=== PATIENT | male | born 1965 | race Asian ===

== ENCOUNTER 2016-07-07 18:40 | Emergency (ER) | payer OTHER ==
[2016-07-07 18:49] VITALS: BP 110/79; PULSE 90; RESP 16; TEMP 99.7; O2SAT 93
[2016-07-07] MEDS ORDERED: ONDANSETRON 4 MG/2 ML VIAL IVP ONE (19:32)
[2016-07-07] MEDS ORDERED: NS 1,000 ML IV ONE (19:45)
[2016-07-07] MEDS ORDERED: diphenhydrAMINE 25 MG CAP PO ONE (20:13)
[2016-07-07] MEDS ORDERED: ONDANSETRON 4MG PREPACK#2 BTL TAKEHOME ONE (20:14)
--- NOTE | 2016-07-07 20:18 | UCPHY ---
H & P Patient Type: Established Chief Complaint Nursing Narrative: n/d started today. denies vomiting Time Seen by Provider: 07/07/16 20:00 HPI/ROS: This patient reports diarrhea today-3 episodes of loose watery stool with some crampy intermittent abdominal pain associated with this that is generalized location. Symptoms started 7:00 a.m. this morning. He has associated nausea but is still tolerating p. o. intake and had yogurt and rice this evening with moderate cramping thereafter but no vomiting. No other associated symptoms. No other exacerbating or alleviating factors. ROS: No fevers or chills. No other constitutional symptoms. HEENT: No recent URI symptoms or headache. No other complaints. Pulmonary: No coughing. No shortness of breath. Cardiovascular: No heart palpitations or lightheadedness. GI: Currently no significant abdominal pain. : No symptoms. Integumentary: No skin rash. Point ROS is otherwise negative. Source: Patient Exam Limitations: No limitations - Personal History Tetanus Vaccine Date: 2011? - Medical/Surgical History Other PMH: denies - Family History Significant Family History: No pertinent family hx - Social History Smoking Status: Never smoked Alcohol Use: Occasionally Drug Use: None Additional Social History: No recent foreign travel or suspect food He has had sick contacts with people at work who have had recent gastrointestinal illnesses. - Physical Exam Exam: Normal vital signs General Appearance: Alert, no distress. Eyes: Pupils equal and round no pallor or injection. ENT, Mouth: Mucous membranes moist. Respiratory: There are no retractions, lungs are clear to auscultation. Cardiovascular: Regular rate and rhythm. Gastrointestinal: Hyperactive bowel sounds, soft, nontender Back: No CVA tenderness : No testicular tenderness Neurological: Alert with no focal deficits Skin: Warm and dry, no rashes. Musculoskeletal: Neck is supple nontender. Extremities are symmetrical, full range of motion. Psychiatric: Mood and affect normal DIFFERENTIAL DIAGNOSIS: After history and physical exam differential diagnosis was considered for viral gastroenteritis, dehydration, food intolerance Constitutional: Initial Vital Signs Temperature (C) 37.6 C 07/07/16 18:46 Heart Rate 90 07/07/16 18:46 Respiratory Rate 16 07/07/16 18:46 Blood Pressure 110/79 07/07/16 18:46 O2 Sat (%) 93 07/07/16 18:46 O2 Delivery Mode Room Air Allergies/Adverse Reactions: No Known Allergies Allergy (Verified 04/10/15 20:06) Home Medications: Medication Instructions Recorded Ondansetron Odt [Zofran Odt] 4 - 8 mg PO Q4PRN PRN #4 tab 07/07/16 Medical Decision Making ED Course/Re-evaluation: IV normal saline bolus Given his recent sick contact with coworkers with GI illnesses in his benign appearance currently feel this patient has a mild viral gastroenteritis I counseled regarding this. His nausea was treated with Zofran with relief. Enough ankle evidence suggest surgical abdomen, UTI or other concerning findings. - Data Points Medications Given: Discontinued Medications Diphenhydramine HCl (Benadryl) 50 mg PO EDNOW ONE Stop: 07/07/16 20:14 Last Admin: 07/07/16 20:31 Dose: 50 mg Sodium Chloride (Ns) 1,000 mls @ 0 mls/hr IV ONCE ONE PRN Reason: Wide Open Stop: 07/07/16 19:46 Last Admin: 07/07/16 19:46 Dose: 1,000 mls Ondansetron HCl (Zofran) 4 mg IVP EDNOW ONE Stop: 07/07/16 19:33 Last Admin: 07/07/16 19:46 Dose: 4 mg Ondansetron HCl (Zofran Odt 4 Mg Prepack#2) 1 btl TAKEHOME EDNOW ONE Stop: 07/07/16 20:15 Last Admin: 07/07/16 20:31 Dose: 1 btl Departure - Departure Disposition: Home, Routine, Self-Care Clinical Impression: Nausea Diarrhea Qualifiers: Diarrhea type: unspecified type Qualified Code(s): R19.7 - Diarrhea, unspecified Condition: Good Instructions: Acute Nausea and Vomiting (ED), Acute Diarrhea (ED) Additional Instructions: Diagnosis: Diarrhea 2. Nausea Plan: Zofran if needed for nausea Light diet to feel improved Benadryl at bedtime if needed for cramps that prevents sleep Imodium if needed for diarrhea. Your symptoms will likely improve over the next 1-3 days. Return for any significant worsening despite treatment plan Referrals: Helder Loomis MD [Primary Care Provider] - As per Instructions Prescriptions: Ondansetron Odt [Zofran Odt] 4 - 8 mg PO Q4PRN PRN #4 tab PRN Reason: Vomiting - PQRS PQRS Measurement: NA
== END 2016-07-07 20:33 | disposition home or self-care (01) ==
LOC: CED 18:40
DX: R11.0 Nausea (principal); R19.7 Diarrhea, unspecified
CPT/HCPCS: 96361-PO; 96374-PO; 99214-PO; G0463-PO; J2405

== ENCOUNTER → 2017-02-21 | Outpatient (CLI) | payer OTHER | LOC: CIMAGING 12:00 | PROVIDERS: ATTEND Family Medicine | DX: J45.909 Unspecified asthma, uncomplicated (principal) | CPT/HCPCS: 71020-PO ==

== ENCOUNTER 2017-05-24 08:04 | Emergency (ER) | payer OTHER ==
[2017-05-24 08:09] VITALS: BP 123/80; PULSE 76; RESP 16; TEMP 97.7; O2SAT 97
--- NOTE | 2017-05-24 08:46 | EDPHY ---
H & P Smoking Status: Never smoked Time Seen by Provider: 05/24/17 08:21 HPI/ROS: CHIEF COMPLAINT: Back pain HISTORY OF PRESENT ILLNESS: 52-year-old male presents to the emergency department with low back pain. Patient has a history of low back pain and has seen Dr. Nicholas in the past. Patient states that he has been traveling and sitting for prolonged periods of time and then bend down a few days ago to pick something up and then felt pain in his low back. He denies radicular symptoms. Denies bowel or bladder incontinence. Denies feelings of weakness in his lower legs. Denies chest pain or difficulty breathing. Denies urinary symptoms. Denies symptoms in his upper or lower extremities. REVIEW OF SYSTEMS: Constitutional: No fever, no chills. Eyes: No double or blurry vision. ENT: No sore throat. Respiratory: No cough, no shortness of breath. Cardiac: No chest pain. Gastrointestinal: No abdominal pain, vomiting or diarrhea. Genitourinary: No dysuria. Musculoskeletal: Back pain as above. No neck pain. Skin: No rashes. Neurological: No headache. (SarahNicol melo) Past Medical/Surgical History: Back pain, (Ebonie Overtona Fidencio) Social History: (Nicol Overton) Physical Exam: General Appearance: Alert, no distress. Eyes: Pupils equal and round. Extraocular motions are all intact. ENT: Mouth: Mucous membranes moist. Respiratory: No wheezing, rhonchi, or rales, lungs are clear to auscultation. Cardiovascular: Regular rate and rhythm. Gastrointestinal: Abdomen is soft and nontender, no masses, no rebound or guarding, bowel sounds normal. Neurological: Alert and oriented x 3, cranial nerves II through XII grossly intact Skin: Warm and dry, no rashes. Musculoskeletal: Nontender to palpate along the cervical, thoracic or lumbar spine. Neck is supple. Extremities: Full range of motion and no peripheral edema. Reflexes are 2+ and equal for lower extremities bilaterally. Straight leg raise is negative bilaterally. He is able to do heel-toe walking. Unable to bend over fully to touch his toes. He is able to do a full deep knee bend or squat and is able to do this without assistance. Psychiatric: Patient is oriented X 3, there is no agitation. (Nicol Overton) Constitutional: Initial Vital Signs Temperature (C) 36.5 C 05/24/17 08:05 Heart Rate 76 05/24/17 08:05 Respiratory Rate 16 05/24/17 08:05 Blood Pressure 123/80 H 05/24/17 08:05 O2 Sat (%) 97 05/24/17 08:05 O2 Delivery Mode Room Air Allergies/Adverse Reactions: No Known Allergies Allergy (Verified 05/24/17 08:05) Home Medications: Medication Instructions Recorded Cyclobenzaprine [Flexeril] 5 - 10 mg PO TIDPRN PRN #12 tab 05/24/17 methylPREDNISolone [Medrol Dose 1 each PO AD #0 ea 05/24/17 Roosevelt] oxyCODONE/APAP 5/325 [Percocet 1 - 2 tab PO Q4-6PRN PRN #15 tab 05/24/17 5/325] Medical Decision Making ED Course/Re-evaluation: I do not think imaging studies are indicated. No reports of traumatic injury or fall. I do not think x-rays are warranted. Patient has no evidence of bowel or bladder incontinence. He has symmetrical reflexes. He has no evidence of footdrop.. I do not think MRI is indicated. Patient will be treated conservatively with Medrol Dosepak, Flexeril, and Percocet. He was encouraged to have close follow-up with his primary care provider or with Dr. Nicholas. He was encouraged to return to the emergency department if he developed radicular symptoms in his lower legs, feelings of weakness in his lower legs, bowel or bladder incontinence, or any other concerns. (Nicol vOerton) Differential Diagnosis: Back pain including but not limited to muscular pain, herniated disc, spine fracture, intra-abdominal causes and urinary tract infection. (Nicol Overton) Other Provider: PHYSICIAN DOCUMENTATION: The patient was evaluated and managed by the Physician Warehouse Team Leader. My co- signature indicates that I have reviewed this chart and I agree with the findings and plan of care as documented. I am the secondary supervising physician. (Clement Gramajo) - Data Points Medications Given: Discontinued Medications Oxycodone/Acetaminophen (Percocet 5/325) 1 tab PO EDNOW ONE Stop: 05/24/17 09:08 Last Admin: 05/24/17 09:10 Dose: 1 tab Departure - Departure Disposition: Home, Routine, Self-Care Clinical Impression: Back pain Qualifiers: Back pain location: low back pain Chronicity: acute Back pain laterality: midline Sciatica presence: without sciatica Qualified Code(s): M54.5 - Low back pain Condition: Good Instructions: Low Back Strain (ED), Acute Low Back Pain (ED) Additional Instructions: Ibuprofen 600 mg every 8 hr as needed for pain. Flexeril as needed for muscular spasm. Caution this medication can make you drowsy. Medrol Dosepak as directed for 1 week. Percocet for severe pain to help you sleep at night. Caution this medication will make you drowsy. Return to the emergency department if you developed numbness or tingling in your lower legs, feelings of weakness in your legs, bowel or bladder incontinence, or if you feel worse in any way. Avoid any lifting activities. Avoid any activity that causes increasing pain tear back. Gentle stretching exercises and walking as discussed. Referrals: Helder Loomis MD [Primary Care Provider] - As per Instructions Prescriptions: Cyclobenzaprine [Flexeril] 5 - 10 mg PO TIDPRN PRN #12 tab PRN Reason: Spasms methylPREDNISolone [Medrol Dose Roosevelt] 1 each PO AD #0 ea oxyCODONE/APAP 5/325 [Percocet 5/325] 1 - 2 tab PO Q4-6PRN PRN #15 tab PRN Reason: For Moderate To Severe Pain
[2017-05-24] MEDS ORDERED: OXYCODONE/APAP 5/325 TAB PO ONE (09:07)
== END 2017-05-24 09:12 | disposition home or self-care (01) ==
DX: M54.5 Low back pain (principal)